=== PATIENT | female | born 1990 | race Caucasian/White ===

== ENCOUNTER → 2023-10-31 10:50 | Outpatient (REF) | payer OTHER, SELFPAY | LOC: RAD 10:50 | PROVIDERS: ATTENDING PHYSICIAN Physician Assistant Medical | DX: M25.551 Pain in right hip (principal) | CPT/HCPCS: 73502 ==

== ENCOUNTER 2024-06-29 16:14 | Emergency (ER) | payer OTHER, SELFPAY ==
[2024-06-29 16:15] VITALS: BP 130/91
--- NOTE | 2024-06-29 16:58 | ED.GENMED ---
History of Present Illness
General
Chief Complaint: Vaginal Bleeding
Source: patient
Exam Limitations: none
Time Seen by Provider: 06/29/24 16:50
Nursing documentation reviewed up to this point in time: agreed with
History of Present Illness
History of Present Illness:
34-year-old female G4, P2 miscarriage 1, LMP 05/19/2024 states she had her first CLIENT SERVICE SUPERVISOR visit yesterday states everything was fine, had a Pap smear and told small amount of bloody discharge is not unusual. She did have small amount of bleeding
afterwards
7 PM last night she noticed increase in bleeding, she contacted Dr. Montano CLIENT SERVICE SUPERVISOR who sent her to [facility] earlier today to get an hCG level and the result is not back yet.
Throughout the day she has had less bleeding but more crampy, pressure pains in her lower back and pelvis which brought her here to ED
Past History
Past History
ED Past Medical History: None
ED Past Surgical History: , Orthopedic and Tonsilectomy
Social History
Tobacco: Non-smoker
Alcohol: Occasional
Personal:
Living: with family
Employment: Employed
Review of Systems
Review of Systems
Allergies reviewed?: Yes
All Other Systems: ROS reviewed and negative except as documented in HPI and ROS
Constitutional: Denies fever
Respiratory: Denies trouble breathing
Cardiac: Denies chest pain
ABD/GI: Reports abdominal pain; Denies nausea or vomiting
: Reports bleeding; Denies dysuria or difficulty voiding
Musculoskeletal: Reports no symptoms
Skin: Reports no symptoms
Neurological: Reports no symptoms
Phy Exam
Physical Exam
Physical Exam:
GENERAL: No acute distress. A&Ox3.
CONSTITUTIONAL: Afebrile.
EYES: clear, conjunctivae normal
RESPIRATORY: Regular respirations, nonlabored, lungs clear.
CARDIOVASCULAR: Regular rate and rhythm, no murmurs, no rubs.
GI: Soft, nontender, normal BS
: Minimal vaginal bleeding
MUSCULOSKELETAL: Moves with ease. Well perfused.
SKIN: Warm, dry, pink
PSYCH: Normal mood and affect. Well kept, interactive and appropriate
NEUROLOGIC: Awake, alert and oriented. No focal neurological deficits
Course
Orders/Labs/Results
Orders:
Orders
06/29/24 16:57
US 1st Trimester Urgent
Comment:
Reason For Exam: bleeding, cramping LMP 103
06/29/24 17:17
0.9% Sodium Chloride 1000 ml [Nss] 1,000 ml IV BOLUS
06/29/24 17:20
Beta HCG Quantitative Urgent
Is this a screen?: No
Complete Blood Count/With Diff Urgent
Comprehensive Metabolic Panel Urgent
Abnormal Lab Results
06/29/24
17:20
Hgb 10.7 L g/dL
(12.0-16.0)
Hct 34.3 L %
(37.0-47.0)
MCV 73.0 L fL
(81.0-99.0)
MCH 22.8 L pg
(27.0-31.0)
MCHC 31.2 L g/dL
(33.0-37.0)
RDW 16.6 H %
(11.5-14.5)
Absolute Neuts (auto) 6.8 H 10^3/uL
(1.4-6.5)
06/29/24 17:20
06/29/24 17:20
Vital Signs
Initial and Last Documented VS:
Initial Vital Signs
Temp Pulse Resp BP Pulse Ox
98 F 94 16 130/91 100
06/29/24 16:15 06/29/24 16:15 06/29/24 16:15 06/29/24 16:15 06/29/24 16:15
Last Documented Vital Signs
Temp Pulse Resp BP Pulse Ox
98 F 94 16 130/91 100
06/29/24 16:15 06/29/24 16:15 06/29/24 16:15 06/29/24 16:15 06/29/24 16:15
MDM/Problems Addressed
Differential Diagnosis Includes:
ectopic, bleeding in early , threatened miscarriage
MDM/Problems Addressed:
34-year-old female G4, P2 miscarriage 1, LMP 05/19/2024 states she had her first CLIENT SERVICE SUPERVISOR visit yesterday states everything was fine, had a Pap smear and told small amount of bloody discharge is not unusual. She did have small amount of bleeding
afterwards
7 PM last night she noticed increase in bleeding, she contacted Dr. Montano CLIENT SERVICE SUPERVISOR who sent her to [facility] earlier today to get an hCG level and the result is not back yet.
Throughout the day she has had less bleeding but more crampy, pressure pains in her lower back and pelvis which brought her here to ED
6:30 p.m.
CBC: anemia consistent with her CBC in 2020
CMP normal
HCg quantitative: 77.93
Ultrasound radiology report read:IMPRESSION:
No sonographic evidence for intrauterine gestational sac.
ovaries normal, no sign ectopic
Copy of report given to pt and
Consulted COLD PRESS LOADER Dr. Farmer who knows the patient well.
Could still be ectopic or early IUP
Pt to have repeat HCG in 2 days.
*Critical Care Note
Total Time (30-74mins, 75-104mins- exclusive of procedures): Not Applicable
ED Attending Note
-
Portions of this chart may have been created with voice recognition software.� Occasional wrong word or��sound alike� substitutions may have occurred due to the inherent limitations of voice recognition software.
Discharge Plan
Departure
Patient Disposition: Home (Routine Discharge)
Date of Disposition: 06/29/24
Time of Disposition: 18:56
Patient with high blood pressure during this ER visit?: No
Condition: Good
Discharge Problem:
Bleeding in early
Instructions: Threatened Miscarriage (DC)
Prescriptions:
No Action
vit-iron fum-folic ac 1 EACH tablet
1 ea PO DAILY
oxycodone-acetaminophen 5 MG/325 MG tablet
1 tab PO Q4HPRN PRN (Reason: moderate pain) Qty: 7 0RF
ibuprofen 600 MG tablet
600 mg PO Q4HPRN PRN (Reason: cramps) Qty: 90 0RF
Referrals:
Nela Mccullough PA [Family Provider] -
Marlene Farmer DO [Active] - Keep scheduled appt
Activity Restrictions/Additional Instructions:
As we discussed, have your hCG level checked again in [address] Farmer is aware of situation.
Return here immediately for worsening abdominal pain, feeling faint or lightheaded or feeling worse in any way.
Interventions
Interventions:
*Risk Screen - Suicide Last Done: 06/29/24 16:15
*General Assessment Last Done: 06/29/24 17:26
*Neglect/Abuse Screening Last Done: 06/29/24 16:15
ED- Fall Risk Assessment Last Done: 06/29/24 17:28
*ED COVID-19 Vaccine History Last Done: 06/29/24 17:26
*Nursing Disposition Last Done: 06/29/24 20:30
ED-Female Genitourinary Assessment Last Done: 06/29/24 17:28
Discharge Date and Time
Discharge Date/Time: 06/29/24 20:31
Print Language: BULGARIAN
[2024-06-29 17:25] VITALS: BMI 26.2
[2024-06-29] MEDS: NSS 1000 IV (17:29)
[2024-06-29 17:31] LABS: % Basophils 0.4 % (0-2); % Eosinophils 0.5 % (0-6); % Immature Granulocytes 0.3 % (0-0.5); % Lymphocytes 20.7 % (20.5-51.1); % Monocytes 6.2 % (1.7-9.3); % Neutrophils 71.9 % (42.2-75.2); Absolute Eosinophils 0.1 10^3/uL (0-0.7); Absolute Monocytes 0.6 10^3/uL (0.1-0.6); Absolute Neutrophils 6.8 10^3/uL (1.4-6.5); Hematocrit 34.3 % (37.0-47.0); Hemoglobin 10.7 g/dL (12.0-16.0); Mean Corp Hgb Conc. 31.2 g/dL (33.0-37.0); Mean Corpuscular Hgb 22.8 pg (27.0-31.0); Mean Platelet Volume 9.3 fL (7.4-10.4); Nucleated Red Blood Cells % 0 %; Platelet Count 276 10^3/uL (130-400); Red Cell Dist. Width 16.6 % (11.5-14.5); White Blood Cell Count 9.5 10^3/uL (4.8-10.8)
[2024-06-29 17:45] LABS: ALT (SGPT) 19 U/L (0-35); AST (SGOT) 25 U/L (14-36); Albumin 4.7 g/dl (3.5-5.0); Alkaline Phosphatase 68 U/L (38-126); Blood Urea Nitrogen 7 mg/dl (7-17); Calcium 9.4 mg/dl (8.4-10.2); Carbon Dioxide 26 mmol/L (22-30); Chloride 103 mmol/L (98-107); Estimated Creatinine Clearance 88 ml/min; Glucose 88 mg/dl (70-99); Sodium 142 mmol/L (135-145); Total Bilirubin 0.4 mg/dl (0.2-1.3); Total Protein 7.4 g/dl (6.3-8.2); eGFR > 60.00
[2024-06-29 18:24] LABS: Beta HCG Quantitative 77.93 mIU/ml
== END 2024-06-29 20:31 | disposition home or self-care (01) ==
LOC: EMR 16:14
PROVIDERS: Registered Nurse; EMERGENCY PHYSICIAN Student in an Organized Health Care Education/Training Program; FAMILY PHYSICIAN Physician Assistant Medical
DX: O20.9 Hemorrhage in early pregnancy, unspecified (principal)
CPT/HCPCS: 99284; 76801; 80053; 84702; 85025

== ENCOUNTER 2024-10-31 19:45 | Emergency (ER) | payer OTHER, SELFPAY ==
[2024-10-31] VITALS (8 sets, daily range): BP systolic 103–135; BP diastolic 74–91; PULSE 75–98; BMI 26.6
[2024-10-31 20:07] LABS: % Basophils 0.5 % (0-2); % Eosinophils 1.6 % (0-6); % Immature Granulocytes 0.3 % (0-0.5); % Lymphocytes 23.3 % (20.5-51.1); % Monocytes 5.1 % (1.7-9.3); % Neutrophils 69.2 % (42.2-75.2); Absolute Basophils 0.1 10^3/uL (0-0.2); Absolute Eosinophils 0.2 10^3/uL (0-0.7); Absolute Lymphocytes 2.5 10^3/uL (1.2-3.4); Absolute Monocytes 0.5 10^3/uL (0.1-0.6); Absolute Neutrophils 7.3 10^3/uL (1.4-6.5); Hematocrit 30.7 % (37.0-47.0); Hemoglobin 9.5 g/dL (12.0-16.0); Mean Corp Hgb Conc. 30.9 g/dL (33.0-37.0); Mean Corpuscular Hgb 21.6 pg (27.0-31.0); Mean Corpuscular Volume 69.9 fL (81.0-99.0); Mean Platelet Volume 9.5 fL (7.4-10.4); Nucleated Red Blood Cells % 0 %; Platelet Count 309 10^3/uL (130-400); Red Blood Cell Count 4.39 10^6/uL (4.20-5.40); Red Cell Dist. Width 17.5 % (11.5-14.5); White Blood Cell Count 10.6 10^3/uL (4.8-10.8)
[2024-10-31 20:33] LABS: ALT (SGPT) 16 U/L (0-35); AST (SGOT) 24 U/L (14-36); Albumin 4.3 g/dl (3.5-5.0); Alkaline Phosphatase 65 U/L (38-126); Blood Urea Nitrogen 9 mg/dl (7-17); Calcium 9.5 mg/dl (8.4-10.2); Carbon Dioxide 24 mmol/L (22-30); Chloride 101 mmol/L (98-107); Glucose 92 mg/dl (70-99); Potassium 3.7 mmol/L (3.5-5.1); Sodium 134 mmol/L (135-145); Total Bilirubin 0.5 mg/dl (0.2-1.3); eGFR > 60.00
--- NOTE | 2024-10-31 22:21 | ED.GENMED ---
History of Present Illness
General
Chief Complaint: Breathing Problem
Source: patient and spouse
Exam Limitations: none
Time Seen by Provider: 10/31/24 22:21
Nursing documentation reviewed up to this point in time: agreed with
History of Present Illness
History of Present Illness:
34-year-old female presents emergency department due to shortness of breath ongoing for the past week. 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 She is 9 weeks and 5 days , and was sent in by
Dr. Farmer, her SERVICE LEARNING COORDINATOR.
Past History
Past History
ED Past Medical History: Other (Iron deficiency)
ED Past Surgical History: , Orthopedic, Tonsilectomy and Other ([place] teeth)
Social History
Tobacco: Non-smoker
Alcohol: Occasional
Personal:
Living: with family
Employment: Employed
Review of Systems
Review of Systems
Allergies reviewed?: Yes
All Other Systems: Not applicable
Constitutional: Reports no symptoms
EENT: Reports no symptoms
Respiratory: Reports trouble breathing
Cardiac: Reports no symptoms
ABD/GI: Reports no symptoms
: Reports no symptoms
Musculoskeletal: Reports no symptoms
Skin: Reports no symptoms
Neurological: Reports no symptoms
Endocrine: Reports no symptoms
Hematologic/Lymphatic: Reports no symptoms
Psychiatric: Reports no symptoms
Phy Exam
Physical Exam
Physical Exam:
Physical Exam
General: no apparent distress, not acutely ill
Neck: supple. no meningeal signs. normal posterior pharynx
Heart: s1/s2 regular rate and rhythm, no murmur. equal radial
pulses.
HEENT: Pupils equal round reactive to light, EOMI
Lungs: no acute respiratory distress. clear bilaterally
Abdomen: normal bowel sounds. not tender. no CVAT
Neuro: alert and oriented. no focal neurological deficits cranial nerves II through XII intact
Skin: no rash
Psychiatric: well kept. interactive and cooperative
Extremities: no edema. no calf tenderness. negative homans. good distal pulses
Course
Orders/Labs/Results
Orders:
Orders
10/31/24 19:52
Electrocardiogram (*1) Urgent
Reason for Study: Shortness of Breath
EKG- Treatment ONCE
10/31/24 20:00
Complete Blood Count/With Diff Urgent
Comprehensive Metabolic Panel Urgent
10/31/24 22:30
Urinalysis Urgent
Date Specimen was Collected: 10/31/24
Time Specimen was Collected: 22:26
10/31/24 22:35
IV Insert/Care/Rem.- Treatment PRN
10/31/24 23:00
D-Dimer Urgent
NT-proBNP Urgent
Troponin I Urgent
11/01/24
CT Chest PE Study Urgent
Reason For Exam: short of breath, elevated ddimer, 9wks
Abnormal Lab Results
10/31/24 10/31/24
20:00 23:00
Hgb 9.5 L g/dL
(12.0-16.0)
Hct 30.7 L %
(37.0-47.0)
MCV 69.9 L fL
(81.0-99.0)
MCH 21.6 L pg
(27.0-31.0)
MCHC 30.9 L g/dL
(33.0-37.0)
RDW 17.5 H %
(11.5-14.5)
Absolute Neuts (auto) 7.3 H 10^3/uL
(1.4-6.5)
D-Dimer 1.02 H ug/mlFEU
(0.00-0.50)
Sodium 134 L mmol/L
(135-145)
Creatinine 0.4 L mg/dL
(0.6-1.0)
10/31/24 20:00
10/31/24 20:00
Vital Signs
Initial and Last Documented VS:
Initial Vital Signs
Temp Pulse Resp BP Pulse Ox
98.5 F 86 18 135/91 100
10/31/24 19:46 10/31/24 19:46 10/31/24 19:46 10/31/24 19:46 10/31/24 19:46
Last Documented Vital Signs
Temp Pulse Resp BP Pulse Ox
98.5 F 75 16 103/78 97
10/31/24 19:46 11/01/24 00:00 11/01/24 00:00 10/31/24 23:00 10/31/24 23:45
MDM/Problems Addressed
Differential Diagnosis Includes:
Pulmonary embolism, CHF, anemia
MDM/Problems Addressed:
34-year-old female with shortness of breath, unclear etiology. Possibly related to anemia. No signs of pneumonia or PE. Patient stable for discharge.
*Radiology
Radiology exam reviewed: radiology read reviewed (CT chest no acute findings)
*Pulse Oximetry
Patient hypoxic: no
*EKG
Interpreted by ED Provider?: Yes
EKG Intrepretation Date: 10/31/24
EKG Intrepretation Time: 19:55
Interpretation: normal
Comparison EKG: no comparison EKG present
Heart Rate: 70
Rate: normal
Rhythm: sinus
[place]: normal axis
Interval: normal interval
QRS Pattern: normal QRS
Ischemia: no ischemia
*Kindergarten Aide Interpretation
Rate: normal
Interpretation: normal
Heart Rate: 78
Rhythm: sinus
*Critical Care Note
Total Time (30-74mins, 75-104mins- exclusive of procedures): Not Applicable
Patient Management
Social determinants of health affecting care: Living situation and Strong social support
Escalation/DeEscalation of care consider admission/obs:
Admit not indicated
ED Attending Note
-
Portions of this chart may have been created with voice recognition software.� Occasional wrong word or��sound alike� substitutions may have occurred due to the inherent limitations of voice recognition software.
Discharge Plan
Departure
Patient Disposition: Home (Routine Discharge)
Date of Disposition: 11/01/24
Time of Disposition: 02:11
Patient with high blood pressure during this ER visit?: No
Condition: Good
Discharge Problem:
Shortness of breath
Instructions: Shortness of Breath (Dyspnea) (DC)
Prescriptions:
No Action
vit-iron fum-folic ac 1 EACH tablet
1 ea PO DAILY
oxycodone-acetaminophen 5 MG/325 MG tablet
1 tab PO Q4HPRN PRN (Reason: moderate pain) Qty: 7 0RF
ibuprofen 600 MG tablet
600 mg PO Q4HPRN PRN (Reason: cramps) Qty: 90 0RF
Referrals:
Nela Mccullough PA [Family Provider] - Call in 1-3 days for appt
Marlene Farmer DO [Active] - Call in 1-3 days for appt
Interventions
Interventions:
*Risk Screen - Suicide Last Done: 10/31/24 19:46
*General Assessment Last Done: 10/31/24 19:46
*Neglect/Abuse Screening Last Done: 10/31/24 19:46
ED- Cardiac Assessment Last Done: 10/31/24 21:28
ED- Pulmonary Assessment Last Done: 10/31/24 21:28
Discharge Date and Time
Print Language: SAUDI ARABIAN
[2024-10-31 23:02] LABS: Urine Albumin Negative (Neg - Trace); Urine Bilirubin Negative (Negative); Urine Character Clear (Clear); Urine Color Yellow; Urine Glucose Negative (Negative); Urine Ketone Negative (Negative); Urine Leukocyte Negative (Negative); Urine Nitrite Negative (Negative); Urine Occult Blood Negative (Negative); Urine Urobilinogen Negative (Neg - 1+)
[2024-10-31 23:27] LABS: D-Dimer 1.02 ug/mlFEU (0.00-0.50)
[2024-10-31 23:29] LABS: Troponin I < 0.012 ng/ml
[2024-10-31 23:59] LABS: NT-proBNP 35.7 pg/ml
[2024-11-01 01:00] VITALS: BP 111/67
[2024-11-01 02:00] VITALS: BP 124/77
== END 2024-11-01 02:33 | disposition home or self-care (01) ==
LOC: EMR 19:45
PROVIDERS: Emergency Medicine; EMERGENCY PHYSICIAN Emergency Medicine; FAMILY PHYSICIAN Physician Assistant Medical
DX: O26.891 Other specified pregnancy related conditions, first trimester (principal); R06.02 Shortness of breath; Z3A.09 9 weeks gestation of pregnancy
CPT/HCPCS: 99285; 71275; 80053; 81003; 83880; 84484; 85025; 85379; 93005; Q9967

== ENCOUNTER → 2024-11-22 16:12 | Outpatient (REF) | payer OTHER, SELFPAY | LOC: PNTC 16:12 | PROVIDERS: ATTENDING PHYSICIAN Obstetrics & Gynecology | DX: Z36.0 Encounter for antenatal screening for chromosomal anomalies (principal); Z36.82 Encounter for antenatal screening for nuchal translucency | CPT/HCPCS: 76801; 76813 ==

== ENCOUNTER → 2024-12-13 15:00 | Outpatient (REF) | payer OTHER, SELFPAY ==
[2024-12-13 15:07] LABS: % Basophils 0.2 % (0-2); % Eosinophils 1.9 % (0-6); % Immature Granulocytes 0.1 % (0-0.5); % Lymphocytes 19.8 % (20.5-51.1); % Monocytes 4.6 % (1.7-9.3); % Neutrophils 73.4 % (42.2-75.2); Absolute Eosinophils 0.2 10^3/uL (0-0.7); Absolute Lymphocytes 1.7 10^3/uL (1.2-3.4); Absolute Monocytes 0.4 10^3/uL (0.1-0.6); Absolute Neutrophils 6.3 10^3/uL (1.4-6.5); Hematocrit 32.7 % (37.0-47.0); Hemoglobin 10.5 g/dL (12.0-16.0); Mean Corp Hgb Conc. 32.1 g/dL (33.0-37.0); Mean Corpuscular Volume 74.7 fL (81.0-99.0); Mean Platelet Volume 9.2 fL (7.4-10.4); Platelet Count 224 10^3/uL (130-400); Red Blood Cell Count 4.38 10^6/uL (4.20-5.40); Red Cell Dist. Width 24.5 % (11.5-14.5); White Blood Cell Count 8.6 10^3/uL (4.8-10.8)
== END ==
LOC: OIDL 15:00
PROVIDERS: ATTENDING PHYSICIAN Internal Medicine Hematology & Oncology
DX: D50.9 Iron deficiency anemia, unspecified (principal)
CPT/HCPCS: 85025

== ENCOUNTER → 2025-01-11 06:51 | Outpatient (REF) | payer OTHER, SELFPAY | LOC: HWRAD 06:51 | PROVIDERS: ATTENDING PHYSICIAN Student in an Organized Health Care Education/Training Program; FAMILY PHYSICIAN Physician Assistant Medical | DX: R10.11 Right upper quadrant pain (principal) | CPT/HCPCS: 76700 ==

== ENCOUNTER → 2025-01-12 16:03 | Outpatient (REF) | payer OTHER, SELFPAY | LOC: PNTC 16:03 | PROVIDERS: ATTENDING PHYSICIAN Obstetrics & Gynecology | DX: O09.529 Supervision of elderly multigravida, unspecified trimester (principal) | CPT/HCPCS: 76811 ==

== ENCOUNTER 2025-05-19 15:07 | Inpatient (IN) | payer OTHER, SELFPAY ==
[2025-05-19 15:28] VITALS: BP 138/91; BMI 31.9
[2025-05-19 15:58] LABS: Hematocrit 37.6 % (37.0-47.0); Hemoglobin 13.1 g/dL (12.0-16.0); Mean Corp Hgb Conc. 34.8 g/dL (33.0-37.0); Mean Corpuscular Volume 86.8 fL (81.0-99.0); Platelet Count 208 10^3/uL (130-400); Red Cell Dist. Width 12.9 % (11.5-14.5)
[2025-05-19 16:06] LABS: ALT (SGPT) 14 U/L (0-35); AST (SGOT) 21 U/L (14-36); Albumin 3.4 g/dl (3.5-5.0); Alkaline Phosphatase 148 U/L (38-126); Blood Urea Nitrogen 8 mg/dl (7-17); Calcium 8.6 mg/dl (8.4-10.2); Carbon Dioxide 21 mmol/L (22-30); Chloride 109 mmol/L (98-107); Estimated Creatinine Clearance 125 ml/min; Glucose 91 mg/dl (70-99); Potassium 3.7 mmol/L (3.5-5.1); Sodium 134 mmol/L (135-145); Total Protein 6.0 g/dl (6.3-8.2); eGFR > 60.00
[2025-05-19] MEDS: LR 1000 IV (17:50)
[2025-05-19] MEDS: TYLENOL 975 MG PO (19:03)
[2025-05-19] MEDS: BICITRA 30 ML PO (19:03)
[2025-05-19] MEDS: ANCEF 10 IV (19:03)
[2025-05-19] MEDS: CYTOTEC 800 MCG RECTAL (20:45)
--- NOTE | 2025-05-19 20:52 | HPS.HSE ---
Family Physician
-
Family Physician: NO INTERVIEW UNKNOWN
Chief Complaint
-
elevated BPs
History of Present Illness
HPI: 35 y/o at 38.2 who presented from the office with an elevated BP 134/90. 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 She has a history of PEC in her first . Currently, she
denies headache, vision changes, chest pain, SOB or RUQ pain.
issues:
1. Prior C/S x2, wants salpingectomy
2. Gestational HTN
3. Anemia - SOB -> ED 10/31/24 CT (-) for PE, hg 9.5 s/p 5 iron infusions
4. AMA
5. RhD negative - also Rh negative so did not require Rhogam
6. PIH for first , not second
7. GDM diet for second
Pre- history: A negative, Rh (-), antibody screen (-), pap normal, rubella immune, VDRL non-reactive, GBS positive in the urine, hep B surface antigen (-), Hep C antibody (-), HIV negative, gonorrhea/chlamydia (-), 1 hour glucose 129.
NIPT test was negative.
Past obstetric history: breech with HTN 38wks 2016, gestational DM 2020
PMHx: Ovarian cysts, depression, anxiety,
Medications: PNV, ASA 81
PSHx: Tonsils, [place] teeth, right tendon tear ankle repair 2016, x2
FHx: Father non-hodgkins lymphoma, Both sides HTN.
Allergies:Amoxicillin - vomiting. penicillin - vomiting, pain.
Social: Neg x2, occasional alcohol not during preg
Medical History
Past Medical History
Past Medical History: Reports Psychiatric
Additional Past Medical History:
depression, anxiety
Past Surgical History: Reports
Social History
Tobacco: Non-smoker
Alcohol: None
Drug: None
Family History
Family History: Cancer and Hypertension
Allergies / Home Medications
Allergies reflects when Allergies were last updated in [facility].
Home Medications with original date entered in [facility]
Allergy/Medication List:
Meds: bASA, PNV
All: amoxicillin, PCN- nausea/vomiting
Review of Systems
-
A 12 point ROS was completed and negative except as noted: Yes
Physical Exam
Vital Signs
Vital Signs
Temp Pulse Resp BP Pulse Ox
98.8 F 91 18 138/91 98
05/19/25 15:28 05/19/25 15:28 05/19/25 15:28 05/19/25 15:28 05/19/25 15:28
Physical Exam
General: Well Developed and Well Nourished
HEENT: NormoCephalic
Respiratory: Non Labored Respirations
Cardiac: Regular Rhythm
Skin: Warm and Dry
Neuro: Awake, Alert and Oriented
Psych: Calm
Laboratory Results
-
05/19/25 15:34
05/19/25 15:34
Laboratory Results
Total Bilirubin 0.6 mg/dl (0.2-1.3) 05/19/25 15:34
AST 21 U/L (14-36) 05/19/25 15:34
ALT 14 U/L (0-35) 05/19/25 15:34
Alkaline Phosphatase 148 U/L (38-126) H 05/19/25 15:34
Impression/Plan
-
IMPRESSION:
Patient is a 35yo @38.2 gestational hypertension, history of C/Sx2
PLAN:
- Patient has had BPs elevated >4hrs apart, meeting criteria for gHTN. Since she is >37wks with history of prior C/Sx2, plan to proceed with repeat section. No s/sx of PEC. PEC labs wnl
- Consents previously signed in the office. Patient desires permanent sterilization- aware this is a permanent procedure and she will no longer be able to conceive children naturally
- 2g of ancef prior to OR
- Anesthesia notified
--- NOTE | 2025-05-19 21:00 | OR.RPT ---
Operative Report
Operative Report
Procedure date: 05/19/2025
Preop diagnosis: IUP @38.2, gestational hypertension, hx C/Sx2, AMA, Rh negative, desires sterilization
Postop diagnosis: same
Surgeon: Ashlie Velez DO
Procedure: Repeat low transverse section, bilateral salpingectomy
Anesthesia: Spinal, Filiberto
QBL: 570mL
Complications: none
Findings: viable female infant born at 1938, Apgars 8/9, normal appearing bilateral fallopian tubes and ovaries
Pathology: bilateral fallopian tubes
Indication: Patient is a 35yo who presented to Labor and Delivery from the office with elevated blood pressures. She had elevated blood pressures 4 hours apart, meeting criteria for gestational hypertension. She has a history of two prior
sections. She has completed her family status and desires permanent sterilization. She is aware it is a permanent procedure and she will no longer be able to conceive children naturally. Risks, benefits, and alternatives were discussed and
consents were previously signed.
Procedure: Patient was taken to the operating room where spinal anesthesia was administered and found to be adequate. 2g of Ancef were given for infection prophylaxis. The abdomen was prepped with ChloraPrep. The patient was draped in the normal
sterile fashion. She was placed in the dorsal supine position with a left lateral tilt. A Pfannenstiel incision was made with a 10 blade and carried down to the fascia with a scalpel. Hemostasis achieved with Bovie. The fascia was incised and
dissected laterally with Rodríguez scissors. The superior aspect of the fascia was grasped with Yolande clamps. The underlying rectus fascia was sharply dissected with the Bovie and Rodríguez scissors. In a similar fashion the inferior aspect of the fascia was
elevated with Yolande clamps and the rectus muscle was dissected off with Rodríguez scissors. The rectus muscles were down the midline to the level of the pubic symphysis with manual dissection. The peritoneum was previously entered while
dissecting the rectus muscles off the fascia. The peritoneum was extended with manual traction.
Mcdowell retractor and bladder blade were placed revealing good visualization of the bladder. The vesicouterine peritoneum was identified. A thin lower uterine segment was noted. The lower uterine segment was incised with a scalpel. The uterine
incision was extended bluntly with lateral and upward traction. The amniotic sac was ruptured with an Allis clamp for clear fluid.
The fetus was in cephalic presentation. The head was brought to the hysterotomy. Gentle fundal pressure was applied and the head delivered through the hysterotomy. The rest of the infant delivered without difficulty. Delayed cord clamping was
performed. The was handed off to the mophead trimmer and wrapper. Cord blood was collected. IV oxytocin was started to facilitate uterine contractions. The placenta was extracted intact with fundal massage and downward traction on the umbilical cord. The
uterus was exteriorized. Allis clamps were placed at the apices of the hysterotomy. The inside of the uterus was wiped with a lap sponge to assure complete removal of placental membranes. Fundal massage was performed and uterus noted to be firm. The
uterine incision was closed with 0 Vicryl in a running locked fashion. A horizontal imbricating stitch was done on the hysterotomy. The hysterotomy was inspected and noted to be hemostatic. Attention was turned to the right fallopian tube. The right
fallopian tube was followed out to the fimbriated end with [place]. The fallopian tube was removed in a stepwise fashion along the mesosalpinx using the Voyant device. Hemostasis was noted at the salpingectomy site. The procedure was repeated on
the left side and the left fallopian tube was removed using the Voyant device. Fallopian tubes were sent to pathology for evaluation. The uterus was placed back in the abdomen. Blood clots and fluid were wiped out of the abdomen and pelvis with
moist laparotomy sponges. The salpingectomy sites were inspected and noted to be hemostatic. The hysterotomy was examined again and was hemostatic. There was oozing from the edge of the peritoneum and Bovie cautery was used to achieve hemostasis.
The rectus muscles were inspected and noted to be hemostatic. The fascial layer was closed in a running continuous fashion using 0 Vicryl. The subcutaneous tissue was copiously irrigated and any small bleeding vessels were cauterized with Bovie
cautery. The subcutaneous tissue was reapproximated in a running continuous fashion with 2-0 Plain. The skin was closed with 4-0 Vicryl in a subcuticular fashion. The incision was covered with skin glue and a pressure dressing. The patient tolerated
the procedure well. All sponge and instrument counts were correct times two. The patient was taken to the recovery room in stable condition. The Morris catheter was draining clear urine at the end of the procedure.
[2025-05-19] MEDS: TRANEXAMIC ACID 100 IV (21:12)
[2025-05-19] MEDS: BENADRYL 25 MG IV (22:35)
[2025-05-19] MEDS: HEMABATE 250 MCG IM (23:00)
[2025-05-20] MEDS: STADOL 1 MG IV (00:20)
[2025-05-20] MEDS: PITOCIN 30 UNITS/NSS 500 ML IV (01:14)
[2025-05-20] MEDS: LR 1000 IV (01:16)
[2025-05-20] MEDS: TORADOL 15 MG IV ×4 (02:05→20:15)
[2025-05-20 05:50] LABS: Hematocrit 36.5 % (37.0-47.0); Hemoglobin 12.6 g/dL (12.0-16.0); Mean Corp Hgb Conc. 34.5 g/dL (33.0-37.0); Mean Corpuscular Volume 86.7 fL (81.0-99.0); Platelet Count 205 10^3/uL (130-400); Red Cell Dist. Width 12.9 % (11.5-14.5)
--- NOTE | 2025-05-20 09:29 | W.PN.ANS.POP ---
Anesthesia Post Operative
- Anesthesia Post Op Note
Vital Signs Stable-See Nursing Note: Yes
Airway Patent: Yes
Adequate Pain Control: Yes
Change in Mental Status: No
Current Postoperative Nausea & Vomiting: No
Anesthesia Complications: No
General Anesthetic Recall: No
Unplanned Admission: No
Post Op Hydration Adequate: Yes
[2025-05-20] MEDS: MORPHINE SULFATE 4 MG IV (10:18)
[2025-05-20] MEDS: COLACE 100 MG PO ×2 (13:54→20:16)
[2025-05-20] MEDS: PRENATAL PLUS 1 TABLET PO (13:54)
[2025-05-20] MEDS: ROXICODONE 5 MG PO ×2 (16:53→21:01)
[2025-05-21] MEDS: ROXICODONE 5 MG PO ×2 (02:05→20:51)
[2025-05-21] MEDS: MOTRIN 600 MG PO ×3 (02:05→18:02)
[2025-05-21] MEDS: ROXICODONE 10 MG PO ×2 (06:48→15:32)
[2025-05-21] MEDS: COLACE 100 MG PO ×2 (08:08→20:00)
[2025-05-21] MEDS: PRENATAL PLUS 1 TABLET PO (08:08)
[2025-05-21] MEDS: TYLENOL 650 MG PO ×2 (12:12→18:02)
[2025-05-21] MEDS: HYDROCORTISONE 1% CREAM 1 APPLIC TOPICAL (20:51)
[2025-05-22] MEDS: MOTRIN 600 MG PO ×3 (00:42→12:54)
[2025-05-22] MEDS: TYLENOL 650 MG PO ×3 (00:42→12:53)
[2025-05-22] MEDS: COLACE 100 MG PO (08:20)
[2025-05-22] MEDS: PRENATAL PLUS 1 TABLET PO (08:20)
[2025-05-22] MEDS: ROXICODONE 5 MG PO (08:20)
[2025-05-22] MEDS: HYDROCORTISONE 1% CREAM 1 APPLIC TOPICAL (08:21)
[2025-05-22 11:13] LABS: ALT (SGPT) 14 U/L (0-35); AST (SGOT) 27 U/L (14-36); Albumin 2.9 g/dl (3.5-5.0); Alkaline Phosphatase 104 U/L (38-126); Blood Urea Nitrogen 6 mg/dl (7-17); Calcium 9.3 mg/dl (8.4-10.2); Carbon Dioxide 28 mmol/L (22-30); Chloride 108 mmol/L (98-107); Estimated Creatinine Clearance 125 ml/min; Glucose 94 mg/dl (70-99); Potassium 3.8 mmol/L (3.5-5.1); Sodium 137 mmol/L (135-145); Total Protein 5.5 g/dl (6.3-8.2); eGFR > 60.00
[2025-05-22 12:02] LABS: Hematocrit 34.4 % (37.0-47.0); Hemoglobin 11.8 g/dL (12.0-16.0); Mean Corp Hgb Conc. 34.3 g/dL (33.0-37.0); Mean Corpuscular Volume 91.2 fL (81.0-99.0); Platelet Count 211 10^3/uL (130-400); Red Cell Dist. Width 13.2 % (11.5-14.5)
--- NOTE | 2025-05-22 12:45 | W.DS.TRANS ---
DC Summary - All [facility] [employer]cher
-
Discharge Instructions:
Discharge Diagnosis/Procedures delivery and removal of fallopian tubes
Instructions:
Stand-Alone Forms: LDRP Delivery
LDRP Hypertensive Disorders
Changes to Home Medications: No
Discharge Medications:
DC Medications w/original date entered in [email or web address]
vitamin-ferrous fumarate 28 mg iron-folic acid 800 mcg tablet 1 ea PO DAILY Supplement 05/14/17
acetaminophen 325 mg tablet 650 mg (2 x 325 mg) PO Q4HPRN PRN mild pain #0 tabs 05/22/25
docusate sodium 100 mg capsule 100 mg PO BID #0 caps 05/22/25
ibuprofen 600 mg tablet 600 mg PO Q6HPRN PRN cramps #30 tabs 05/22/25
oxycodone 5 mg tablet 5 mg PO Q4HPRN PRN moderate pain #10 tabs 05/22/25
sennosides 8.6 mg tablet (Anel-katy) 17.2 mg (2 x 8.6 mg) PO HSPRN PRN constipation #0 tabs 05/22/25
simethicone 80 mg chewable tablet 80 mg PO TIDPRN PRN flatulence #0 tabs 05/22/25
Home Medication Changes
Pending Results: Yes (Fallopian tubes pathology report)
Total time spent discharging patient (in min): 20
[2025-05-22] MEDS: FLUZONE (6 mos+) 2025-2026 FORMULA 0.5 ML IM (12:54)
[2025-05-23 11:33] LABS: Syphilis/T. pallidum Ab Reflex Negative (Negative)
== END 2025-05-22 15:27 | disposition home or self-care (01) | DRG 784 ==
LOC: LDRP 15:07
PROVIDERS: Obstetrics & Gynecology; ADMITTING PHYSICIAN Student in an Organized Health Care Education/Training Program
PROC: 6A550ZT Pheresis of Cord Blood Stem Cells, Single (ICD-10-PCS; 2025-05-19)
PROC: 10D00Z1 Extraction of Products of Conception, Low, Open Approach (ICD-10-PCS; 2025-05-19)
PROC: 0UT70ZZ Resection of Bilateral Fallopian Tubes, Open Approach (ICD-10-PCS; 2025-05-19)
PROC: 0W3R7ZZ Control Bleeding in Genitourinary Tract, Via Natural or Artificial Opening (ICD-10-PCS; 2025-05-20)
PROC: 3E02340 Introduction of Influenza Vaccine into Muscle, Percutaneous Approach (ICD-10-PCS; 2025-05-22)
DX: O34.211 Maternal care for low transverse scar from previous cesarean delivery (principal); O72.2 Delayed and secondary postpartum hemorrhage; Z3A.38 38 weeks gestation of pregnancy; Z37.0 Single live birth; O99.02 Anemia complicating childbirth; O99.824 Streptococcus B carrier state complicating childbirth; O13.4 Gestational [pregnancy-induced] hypertension without significant proteinuria, complicating childbirth; J30.81 Allergic rhinitis due to animal (cat) (dog) hair and dander; Z82.49 Family history of ischemic heart disease and other diseases of the circulatory system; Z80.7 Family history of other malignant neoplasms of lymphoid, hematopoietic and related tissues; Z88.0 Allergy status to penicillin; Z23 Encounter for immunization; Z30.2 Encounter for sterilization; Z79.82 Long term (current) use of aspirin
CPT/HCPCS: 36415; 58605; 80053; 82570; 84156; 85027; 86780; 86850; 86900; 86901; 88302; 90656; G0008

== ENCOUNTER 2025-05-28 16:57 | Observation (INO) | payer OTHER, SELFPAY ==
[2025-05-28 17:06] VITALS: BP 135/86; BMI 28.7
[2025-05-28 17:28] LABS: Hematocrit 37.5 % (37.0-47.0); Hemoglobin 12.9 g/dL (12.0-16.0); Mean Corp Hgb Conc. 34.4 g/dL (33.0-37.0); Mean Corpuscular Volume 87.6 fL (81.0-99.0); Nucleated Red Blood Cells % 0 %; Platelet Count 313 10^3/uL (130-400); Red Cell Dist. Width 12.8 % (11.5-14.5)
[2025-05-28 17:30] LABS: Urine Character Clear (Clear)
[2025-05-28 17:36] LABS: Urine Squamous Cell >30 /LPF (Few)
[2025-05-28 17:40] LABS: ALT (SGPT) 37 U/L (0-35); AST (SGOT) 29 U/L (14-36); Albumin 3.7 g/dl (3.5-5.0); Alkaline Phosphatase 97 U/L (38-126); Blood Urea Nitrogen 11 mg/dl (7-17); Calcium 9.0 mg/dl (8.4-10.2); Carbon Dioxide 25 mmol/L (22-30); Chloride 107 mmol/L (98-107); Estimated Creatinine Clearance 119 ml/min; Glucose 108 mg/dl (70-99); Potassium 3.8 mmol/L (3.5-5.1); Sodium 137 mmol/L (135-145); Total Protein 6.5 g/dl (6.3-8.2); Uric Acid 4.1 mg/dl (2.5-6.2); eGFR > 60.00
[2025-05-28] MEDS: REGLAN 10 MG IV (18:15)
[2025-05-28] MEDS: BENADRYL 25 MG IV (18:16)
== END 2025-05-28 20:02 | disposition home or self-care (01) ==
LOC: LDRP 16:57
PROVIDERS: ADMITTING PHYSICIAN Obstetrics & Gynecology
DX: O90.89 Other complications of the puerperium, not elsewhere classified (principal); R51.9 Headache, unspecified; Z88.0 Allergy status to penicillin
CPT/HCPCS: 80053; 81003; 81015; 82570; 84156; 84550; 85025; 86850; 86900; 86901; G0378

== ENCOUNTER 2025-07-12 08:36 | Outpatient (RCR) | payer OTHER, SELFPAY | END 2025-07-12 23:59 | disposition home or self-care (01) | LOC: RPT 08:36 | PROVIDERS: ATTENDING PHYSICIAN Obstetrics & Gynecology; FAMILY PHYSICIAN Family Medicine | DX: N39.3 Stress incontinence (female) (male) (principal); N32.81 Overactive bladder; R10.20 Pelvic and perineal pain unspecified side; N39.46 Mixed incontinence; Z73.6 Limitation of activities due to disability; M62.81 Muscle weakness (generalized); M54.50 Low back pain, unspecified | CPT/HCPCS: 97110; 97140; 97163; 97530 ==

== ENCOUNTER 2025-08-01 09:16 | Outpatient (RCR) | payer OTHER, SELFPAY | END 2025-08-01 23:59 | disposition home or self-care (01) | LOC: RPT 09:16 | PROVIDERS: ATTENDING PHYSICIAN Obstetrics & Gynecology; FAMILY PHYSICIAN Family Medicine | DX: N32.81 Overactive bladder (principal); R10.20 Pelvic and perineal pain unspecified side; N39.46 Mixed incontinence; Z73.6 Limitation of activities due to disability; M62.81 Muscle weakness (generalized); M54.50 Low back pain, unspecified; N39.3 Stress incontinence (female) (male) | CPT/HCPCS: 97110; 97112; 97140; 97530 ==